=== PATIENT | male | born 2000 | race Caucasian/White ===

== ENCOUNTER 2018-02-18 02:44 | Emergency (ER) | payer OTHER ==
[~2018-02-18] VITALS: Ht 170.2 cm; Wt 77.1 kg
[2018-02-18] MEDS ORDERED: OLANZAPINE 10 MG VIAL IM ONE ×2 (02:59→03:00)
[2018-02-18] MEDS ORDERED: diphenhydrAMINE HCL 50 MG/ML VIAL ONE (02:59)
[2018-02-18] MEDS ORDERED: diphenhydrAMINE HCL 50 MG/ML VIAL IM ONE (03:00)
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
[2018-02-18 03:16] LABS: BASOPHILS # (AUTO) 0.1 /CMM (0.0-0.2); BASOPHILS % (AUTO) 0.6 % (0.0-2.0); EOSINOPHILS % (AUTO) 1.1 % (0.0-6.0); HEMATOCRIT 50 % (39-51); HEMOGLOBIN 16.5 g/dL (13.5-17.5); LYMPHOCYTES # (AUTO) 3.6 /CMM (0.8-4.8); LYMPHOCYTES % (AUTO) 30.3 % (20.0-44.0); MEAN CORPUSCULAR HEMOGLOBIN 29 PG (26.0-33.0); MEAN CORPUSCULAR HGB CONC 33 g/dl (31.0-36.0); MEAN CORPUSCULAR VOLUME 86 fL (80-96); MONOCYTES # (AUTO) 0.7 /CMM (0.1-1.30); MONOCYTES % (AUTO) 6.1 % (2.0-12.0); NEUTROPHILS # (AUTO) 7.4 /CMM (1.8-8.9); NEUTROPHILS % (AUTO) 61.9 % (43.0-81.0); PLATELET COUNT (AUTO) 265 /CMM (150-450); RDW COEFFICIENT OF VARIATION 13.8 (11.5-15.0); RED BLOOD CELL COUNT(AUTO) 5.75 MIL/uL (4.5-6.0)
[2018-02-18 03:17] LABS: APPEARANCE,URINE CLEAR (CLEAR); BILIRUBIN,URINE NEGATIVE (NEGATIVE); BLOOD, URINE NEGATIVE Ery/uL (NEGATIVE); COLOR,URINE YELLOW (YELLOW); KETONES,URINE NEGATIVE (NEGATIVE); LEUKOCYTE ESTERASE ,URINE NEGATIVE (NEGATIVE); NITRITE, URINE NEGATIVE (NEGATIVE); PROTEIN,URINE NEGATIVE (NEGATIVE); UGLUCOSE NEGATIVE (NEGATIVE); UROBILINOGEN,URINE 0.2 EU/dL (0.2)
[2018-02-18 03:26] LABS: CALCIUM, SERUM 8.5 mg/dL (8.5-10.1); CREATININE 1.4 mg/dL (0.6-1.3); POTASSIUM 3.7 mmol/L (3.5-5.1)
[2018-02-18 03:32] LABS: BILIRUBIN,DIRECT 0.1 mg/dL (0.0-0.2); BILIRUBIN,TOTAL 0.3 mg/dL (0.2-1.0); TOTAL PROTEIN, SERUM 7.3 g/dL (6.4-8.2)
[2018-02-18 03:35] LABS: SALICYLATE 1.8 mg/dL (2.8-20.0)
[2018-02-18] MEDS ORDERED: LORAZEPAM INJ 2 MG/ML VIAL IM ONE (04:00)
--- NOTE | 2018-02-18 04:02 | NUR ---
PT CONTINUES TO BE UNCOOPERATIVE YELLING AND SCREAMING. MD NOTIFIED. SAFETY MEASURES IN PLACE. CALL LIGHT WITHIN REACH. NAD. VSS
--- NOTE | 2018-02-18 04:33 | NUR ---
Patient is resting comfortably in bed with eyes closed. Easily aroused. VSS
[2018-02-18] MEDS ORDERED: LORAZEPAM INJ 2 MG/ML VIAL ONE (04:35)
--- NOTE | 2018-02-18 05:22 | NUR ---
PT CONTINUES TO REST COMFORTABLY. EASILY AROUSED. VSS. NAD. SAFETY MEASURES IN PLACE. CALL LIGHT WITHIN REACH.
--- NOTE | 2018-02-18 07:07 | NUR ---
REPORT GIVEN TO ONCOMING SHIFT RN GENER. PT STABLE CONDITION. VSS. NAD.
--- NOTE | 2018-02-18 07:44 | NUR ---
RADIOLOGY AT BEDSIDE FOR R HAND XRAY.
[2018-02-18] MEDS ORDERED: IV NS 0.9% 1,000 ML IV ONE (08:00)
[2018-02-18] MEDS: BACI/NEOM/POLY B OINT PKT 1 UDPKT PACKET TP ONE (08:30)
--- NOTE | 2018-02-18 09:47 | NUR ---
DAD AT BEDSIDE REFUSED PIV AND IVF ORDERED,DR VILLELA INFORMED
[2018-02-18] MEDS ORDERED: IV D5/0.45 NACL 1,000 ML IV ONE (10:00)
[2018-02-18] MEDS ORDERED: BACI/NEOM/POLY B OINT PKT 1 UDPKT PACKET ONE (11:16)
--- NOTE | 2018-02-18 11:21 | NUR ---
PT'S DAD AND PT REFUSED IV FLUIDS. AWARE.
--- NOTE | 2018-02-18 12:33 | NUR ---
Patient is resting comfortably in bed with eyes closed. Easily aroused. pts dad at bs.
[2018-02-18 15:48] VITALS: BP 120/53
== END 2018-02-18 15:52 | disposition home or self-care (01) ==
LOC: ER 02:45
DX: F15.129 Other stimulant abuse with intoxication, unspecified (principal); F10.129 Alcohol abuse with intoxication, unspecified; Y90.8 Blood alcohol level of 240 mg/100 ml or more
CPT/HCPCS: 36415; 73130-TC; 80048-TC; 80076-TC; 80305; 81000-TC; 85025-TC; A4606; A4649; A6402; G0480; J1200; J2060; J3490; J7030; Z7610